=== PATIENT | male | born 1950 | race Caucasian/White ===

== ENCOUNTER 2016-08-24 02:07 | Emergency (ER) | payer MEDICARE, OTHER ==
[~2016-08-24] VITALS: Ht 167.6 cm; Wt 88.0 kg
[2016-08-24 02:10] VITALS: Ht 167.6 cm; Wt 88.0 kg
[2016-08-24] MEDS ORDERED: ACETAMINOPHEN 500 MG TAB PO STA (05:35)
--- NOTE | 2016-08-24 05:59 | ERD ---
ER Documentation Chief Complaint Date/Time DATE: 08/24/16 TIME: 05:51 Chief Complaint laceation to top of head sp fall HPI This 66-year-old male who presents to the emergency department today for a head laceration. Patient stated that he was tried to jump over a puddle in the rain last night and when he jumped up he hit his head on a sign as he did not see the sign and it knocked him back in he hit the back of his head and neck. Denies any nausea vomiting, loss of consciousness, or vision changes. ROS All systems reviewed and are negative except as per history of present illness. Allergies Allergies: Coded Allergies: No Known Allergy (Unverified , 08/24/16) PMhx/Soc History of Surgery: No Anesthesia Reaction: No Hx Neurological Disorder: No Hx Respiratory Disorders: No Hx Cardiac Disorders: No Hx Psychiatric Problems: No Hx Miscellaneous Medical Probl: No Hx Alcohol Use: No Hx Substance Use: No Hx Tobacco Use: No Smoking Status: Never smoker Physical Exam Vitals Vital Signs Date Time Temp Pulse Resp B/P Pulse Ox O2 Delivery O2 Flow Rate FiO2 08/24/16 02:10 97.8 71 18 163/89 94 Physical Exam Const: Talkative, no acute distress Head: 1 inch laceration top of head. Bleeding controlled. Tenderness to palpation occipital aspect of head. Eyes: Normal Conjunctiva. PERRLA. EOM intact. ENT: No hemotympanum. No epistaxis. Throat no erythema Neck: Full range of motion..~ No meningismus. No midline tenderness. Tenderness to palpation bilateral paraspinal Resp: Clear to auscultation bilaterally Cardio: Regular rate and rhythm, no murmurs Abd: Soft, non tender, non distended. Normal bowel sounds Skin: No petechiae or rashes Back: No midline or flank tenderness Ext: No cyanosis, or edema Neur: Awake and alert. No gait ataxia. Psych: Normal Mood and Affect Results 24 hrs Current Medications Medications (Trade) Dose Ordered Sig/[place] Route PRN Reason Start Time Stop Time Status Last Admin Dose Admin Acetaminophen (Tylenol Tab) 500 mg ONCE STAT PO 08/24/16 05:35 08/24/16 05:37 DC Diphtheria/ Tetanus/Acell Pertussis (Adacel) 0.5 ml ONCE ONCE IM* 08/24/16 06:00 08/24/16 06:01 Procedures/MDM This is a 66-year-old male who presents to the emergency department with a laceration on the top of his head after hitting his head on a sign earlier in the evening and falling backwards. Patient has a once a meter laceration. The patient that he will need shashi. Explained the risks and benefits and patient agreed to proceed. Patient was also complaining of some neck pain and the posterior aspect of his head and although the patient had no loss of consciousness and he denies any nausea or vomiting. Given the patient's age and stated complaint is appropriate to obtain a head CT and cervical spine. Head CT and cervical spine are pending at time of sign out to [facility]. He will also perform the procedure. Patient given Tylenol here in the emergency department. He is afebrile and otherwise well appearing. Patient was not up-to-date on his tetanus and he was given a tetanus vaccine. Patient's symptoms at this time consistent with laceration and head injury. He will be given a prescription for Tylenol and instructed to return for staple removal in 5-7 days. Any further documentation orders place will be placed by SRAVANTHI Russell PA-C, PA-C Aug 24, 2016 05:59
[2016-08-24] MEDS ORDERED: DIPHTH/TET/ACEL PERTUSS (ADULT) 0.5 ML VIAL IM* ONE (06:00)
[2016-08-24] MEDS ORDERED: ACET500C5 PO (06:00)
--- NOTE | 2016-08-24 06:22 | RADRPT ---
PROCEDURE: CT Brain without. CLINICAL INDICATION: Headache TECHNIQUE: A CT of the brain was performed utilizing axial sections from the skull base through th e vertex without contrast. The scan was reviewed in soft tissue brain and high frequency resolution bone algorithm windows. Images were reviewed on a high-resolution PACS workstation. The exam CTDI = 44.68 mGy, and the DLP = 810.25 mGy-cm. COMPARISON: None available FINDINGS: The ventricles are normal in size and midline in position. There is no intracranial hemorrhage, mid line shift, or mass effect. No abnormal extra-axial fluid collections are identified. The bond-whi te differentiation is well preserved. There is mild demineralization of the basal ganglia. The basal cisterns are patent. The posterior fossa is unremarkable. The visualized portions of the orbits are unremarkable. The paranasal sinuses and mastoid air cells are clear. No calvarial fracture or abnormality are identified. The soft tissues are unremarkable . IMPRESSION: Unremarkable CT of the brain. RPTAT: .Katharina Alatorre MD, MD Date Time Electronically viewed and signed by .Katharina Alatorre MD, on 08/24/2016 06:22 .G/
--- NOTE | 2016-08-24 06:28 | RADRPT ---
PROCEDURE: CT Cervical Spine without contrast. CLINICAL INDICATION: Pain following trauma. TECHNIQUE: Routine axial tomographic images of the cervical spine with coronal and sagittal reform ats were obtained without contrast. The CTDI = 22.32 mGy and the DLP = 563.25 mGy-cm. COMPARISON: No prior studies are available for comparison. FINDINGS: There is straightening of the normal cervical lordosis. There is mild vertebral body height loss of C5, C6 and C7. The intervertebral disc spaces are narrowed throughout. There are bulky anterior os teophytes at C5-6 and C6-7. The cervical spinal cord shows no significant enlargement, or focal mass es. There is no bony destruction or sclerosis. There is no dislocation or fracture. There are degene rative changes of the atlantoaxial joint with joint space narrowing and subchondral sclerosis. C2-3: There is right greater than left facet arthropathy without neuroforaminal narrowing. There is no central canal stenosis. C3-4: There is severe left facet arthropathy and uncovertebral hypertrophy with severe left neurofor aminal narrowing. There is moderate right facet arthropathy with mild right neural foraminal narrowi ng. There is no central canal stenosis. C4-5: There is facet arthropathy and uncovertebral hypertrophy without significant neuroforaminal na rrowing. There is no central canal stenosis. C5-6: There is facet arthropathy and uncovertebral hypertrophy without neuroforaminal narrowing. The re is no central canal stenosis. C6-7: There is severe right facet arthropathy without neuroforaminal narrowing. There is no central canal stenosis. C7-T1: There is no neuroforaminal narrowing. There is no central canal stenosis. IMPRESSION: 1. No acute fracture identified. 2. Moderate degenerative changes of the cervical spine. RPTAT: HH .Katharina Alatorre MD, Date Time Electronically viewed and signed by .Katharina Alatorre MD, MD on 08/24/2016 06:28 .G/
[2016-08-24 06:40] VITALS: BP 152/78; PULSE 76; RESP 18; TEMP 97.8
== END 2016-08-24 06:41 | disposition home or self-care (01) ==
LOC: FTE 02:07
DX: S01.01XA Laceration without foreign body of scalp, initial encounter (principal); W18.09XA Striking against other object with subsequent fall, initial encounter; Y92.9 Unspecified place or not applicable; Z23 Encounter for immunization
CPT/HCPCS: 70450; 72125; 90471; 90715

== ENCOUNTER 2016-09-02 00:07 | Emergency (ER) | payer MEDICARE, OTHER ==
[~2016-09-02] VITALS: Ht 167.6 cm; Wt 89.0 kg
[~2016-09-02 00:07] MED LIST: ACET500C5 PO
[2016-09-02 00:10] VITALS: Ht 167.6 cm; Wt 89.0 kg
--- NOTE | 2016-09-02 01:05 | ERD ---
ER Documentation Chief Complaint Date/Time DATE: 09/02/16 TIME: 01:02 Chief Complaint staple removal scalp from 08/24/16 HPI 66-year-old male presents here in emergency department for staple removal. Patient has shashi placed 08/24/2016. Patient wound is healing well, denies any discharge coming from the wound. Patient denies any open of the wound. Patient denies any fever or chills. Patient denies any pain. ROS All systems reviewed and are negative except as per history of present illness. Medications Home Meds Active Scripts Acetaminophen* (Tylophen*) 500 Mg Capsule, 1 CAP PO Q6H Y for PAIN AND OR ELEVATED TEMP, #30 CAP Prov:SRAVANTHI CORTÉS PA-C 08/24/16 Allergies Allergies: Coded Allergies: No Known Allergy (Unverified , 08/24/16) PMhx/Soc Medical and Surgical Hx: pt denies Medical Hx, pt denies Surgical Hx History of Surgery: No Anesthesia Reaction: No Hx Neurological Disorder: No Hx Respiratory Disorders: No Hx Cardiac Disorders: No Hx Psychiatric Problems: No Hx Miscellaneous Medical Probl: No Hx Alcohol Use: No Hx Substance Use: No Hx Tobacco Use: No Smoking Status: Never smoker FmHx Family History: No coronary disease, No diabetes, No other Physical Exam Vitals Vital Signs Date Time Temp Pulse Resp B/P Pulse Ox O2 Delivery O2 Flow Rate FiO2 09/02/16 00:10 97.4 81 20 144/78 95 Physical Exam GENERAL: The patient is well developed and appropriate for usual state of health, in no apparent distress. CHEST: Clear to auscultation bilaterally. There are no rales, wheezes or rhonchi. HEART: Regular rate and rhythm. No murmurs, clicks, rubs or gallops. No S3 or S4. ABDOMEN: Soft, nontender and nondistended. Good bowel sounds. No rebound or guarding. No gross peritonitis. No gross organomegaly or masses. No Howell sign or McBurney point tenderness. BACK: No midline or flank tenderness. EXTREMITIES: Equal pulses bilaterally. There is no peripheral clubbing, cyanosis or edema. No focal swelling or erythema. Full range of motion. Grossly neurovascularly intact. NEURO: Alert and oriented. Cranial nerves 2-12 intact. Motor strength in all 4 extremities with 5/5 strength. Sensation grossly intact. Normal speech and gait. SKIN: [address] in the scalp, frontal scalp area, laceration wound noted to be intact, healing well, no gaping of the wound, no redness, no discharge. There is no apparent rash or petechia. The skin is warm and dry. HEMATOLOGIC AND LYMPHATIC: There is no evidence of excessive bruising or lymphedema. No gross cervical, axillary, or inguinal lymphadenopathy. Procedures/MDM Procedure note: After patient's verbal consent, the shashi were removed without any difficulty, the wound was healing well, no purulent discharge coming from the wound. Patient is well approximated. No symptoms of any infection Medical decision making: Patient symptoms most likely is consistent with a healing laceration wound. No symptoms of any infection at this time. The shashi were removed without any difficulty, patient was advised to do wound care on affected area, return to emergency department for any worsening symptoms. Departure Diagnosis: Primary Impression: Encounter for removal of shashi Condition: Stable Patient Instructions: Staple Removal, No Complication NICKIE FLORES NP Sep 02, 2016 01:04
== END 2016-09-02 01:09 | disposition home or self-care (01) ==
LOC: FTE 00:07
DX: Z48.02 Encounter for removal of sutures (principal)
CPT/HCPCS: 99281